=== PATIENT | female | born 1940 | race Caucasian/White ===

== ENCOUNTER 2016-07-27 08:42 | Observation (INO) | payer MEDICARE ==
[~2016-07-27] VITALS: Ht 167.6 cm; Wt 55.9 kg
[~2016-07-27 08:42] MED LIST: ASPI-496 PO; CHOL20003 PO; DIGO250T PO; FLEC50TA25 PO; VIT1CAPS11 PO
[2016-07-27] MEDS ORDERED: SODIUM CHLORIDE 0.9% 1,000ML IVBOLUS ONE (09:30)
[2016-07-27] MEDS ORDERED: METOCLOPRAMIDE 5 MG/ML, 2ML IVPush ONE (09:30)
[2016-07-27] MEDS ORDERED: MORPHINE SULFATE 4 MG/ML, 1ML IVPush PRN (09:30)
[2016-07-27] MEDS ORDERED: SODIUM CHLORIDE FLUSH 10ML SYR IVF ONE (09:30)
[2016-07-27] MEDS ORDERED: DIPHENHYDRAMINE 50 MG/ML, 1ML IVPush ONE (09:30)
[2016-07-27] MEDS ORDERED: MORPHINE SULFATE 4 MG/ML, 1ML ONE (09:39)
[2016-07-27] MEDS ORDERED: METOCLOPRAMIDE 5 MG/ML, 2ML ONE (09:39)
[2016-07-27] MEDS ORDERED: DIPHENHYDRAMINE 50 MG/ML, 1ML ONE (09:40)
[2016-07-27 09:55] LABS: ASPARTATE AMINO TRANSFERASE 21 U/L (15-37); BLOOD UREA NITROGEN 19 mg/dL (7-18); C-REACTIVE PROTEIN, QUANT 0.05 mg/dL (0.02-0.49)
[2016-07-27] MEDS ORDERED: KETOROLAC 30 MG/1 ML IVPush ONE (10:00)
[2016-07-27] MEDS ORDERED: KETOROLAC 30 MG/1 ML ONE (10:13)
[2016-07-27] MEDS ORDERED: OMNIPAQUE 350 MG/ML, 100ML BOTTLE ONE (12:02)
[2016-07-27] MEDS ORDERED: FLECAINIDE 50MG TABLET PO SCH (12:30)
[2016-07-27] MEDS ORDERED: SODIUM CHLORIDE 0.9%, 500ML IVBOLUS ONE (12:30)
[2016-07-27] MEDS ORDERED: DILTIAZEM 5 MG/ML, 5ML ONE (12:51)
[2016-07-27] MEDS ORDERED: DILTIAZEM 5 MG/ML, 5ML IVPush ONE (13:00)
[2016-07-27] MEDS ORDERED: DILTIAZEM 125 MG in SODIUM CHLORIDE 0.9% 100 ML IV PRN (13:00)
[2016-07-27] MEDS ORDERED: APIXABAN 5 MG TABLET PO ONE (13:30)
[2016-07-27] MEDS ORDERED: NS + 20MEQ KCL 1,000 ML IV SCH (14:56)
[2016-07-27] MEDS ORDERED: ONDANSETRON 2MG/ML, 2ML IVP PRN (15:00)
[2016-07-27] MEDS ORDERED: ENOXAPARIN 40 MG/0.4 ML SQ SCH (15:00)
[2016-07-27] MEDS ORDERED: KETOROLAC 30 MG/1 ML IVPush PRN (15:00)
[2016-07-27] MEDS ORDERED: LABETALOL 5MG/ML, 20ML IV PRN (15:00)
[2016-07-27] MEDS ORDERED: HYDROcodone/APAP 5/325 TABLET PO PRN (15:00)
[2016-07-27] MEDS ORDERED: ACETAMINOPHEN 325 MG TABLET PO PRN (15:00)
[2016-07-27] MEDS ORDERED: POLYETHYLENE GLYCOL 17 GM PACKET PO PRN (15:00)
[2016-07-27] MEDS ORDERED: BISACODYL 10 MG SUPP PR PRN (15:00)
[2016-07-27] MEDS ORDERED: DOCUSATE 100 MG CAPSULE PO PRN (15:00)
[2016-07-27 15:45] LABS: IS PT STATUS REG ER OR PRE ER? YES
[2016-07-27] MEDS ORDERED: NS + 20MEQ KCL 1,000 ML IV ONE (15:54)
[2016-07-27] MEDS ORDERED: ENOXAPARIN 40 MG/0.4 ML ONE (15:54)
[2016-07-27 18:09] VITALS: BP 134/65
[2016-07-27 18:42] VITALS: BP 115/69
[2016-07-27] MEDS: FLECAINIDE 50MG TABLET PO SCH (20:38)
[2016-07-27] MEDS ORDERED: TEMPLATE NON-FORMULARY MED. (Vit A/Vit C/Vit E/Zinc/Copper** (Preservision Areds Softgel PO SCH (21:00)
[2016-07-27 21:46] LABS: IS PT STATUS REG ER OR PRE ER? NO
[2016-07-28] LABS: PATH.CAST-FLAG NOT PRESENT; SPERM-FLAG NOT PRESENT; SRC-FLAG NOT PRESENT; XTAL-FLAG NOT PRESENT; YLC-FLAG NOT PRESENT
[2016-07-28 01:08] VITALS: BP 142/68
[2016-07-28 03:33] LABS: BLOOD UREA NITROGEN 16 mg/dL (7-18)
[2016-07-28 03:37] LABS: IS PT STATUS REG ER OR PRE ER? NO
[2016-07-28 08:30] VITALS: BP 157/80
[2016-07-28] MEDS ORDERED: ASPIRIN 81 MG TABLET EC PO SCH (09:00)
[2016-07-28] MEDS ORDERED: CHOLECALCIFEROL 1,000 UNIT TABLET PO SCH (09:00)
[2016-07-28] MEDS ORDERED: DIGOXIN 0.25 MG TABLET PO SCH (09:00)
[2016-07-28] MEDS: FLECAINIDE 50MG TABLET PO SCH (09:10)
== END 2016-07-28 13:56 | disposition home or self-care (01) ==
LOC: ED 09:55 → EDIP 13:50 → INTOOBSV 13:50 → 5SO 17:50
PROVIDERS: ADMIT Family Medicine; ATTEND Family Medicine
DX: I48.0 Paroxysmal atrial fibrillation (principal); I34.1 Nonrheumatic mitral (valve) prolapse; R51 Headache; R11.2 Nausea with vomiting, unspecified; R73.9 Hyperglycemia, unspecified; Z87.891 Personal history of nicotine dependence
CPT/HCPCS: 36415; 70450; 70496; 72125; 80048; 80053; 80162; 81001; 83735; 84443; 84484; 85025; 85610; 85651; 85730; 86140; 87086; 93005; 93306; 96361; 96365; 96366; 96372; 96375; 99285; G0378; J1200; J1650; J1885; J2765; J3480; J7030; J7040; Q9967